=== PATIENT | female | born 1955 | race Caucasian/White ===

== ENCOUNTER 2017-11-26 11:39 | Emergency (ER) | payer MEDICARE, MEDICAID ==
[2014-08-15 06:12] VITALS: BMI 36.5
[~2017-11-26 11:39] MED LIST: ATIVAN2 MG PO; HYDROCODONE-APA1 TAB PO; LIPITOR40 MG PO; MAXZIDE 75/501 TAB PO; NEXIUM40 MG PO; NORVASC10 MG PO; SYNTHROID200 MC1 PO; ZEBETA5 MG PO; ZOLOFT100 MG PO
== END 2017-11-26 16:15 | disposition home or self-care (01) ==
LOC: D.ER 11:39
DX: S16.1XXA Strain of muscle, fascia and tendon at neck level, initial encounter (principal); Y04.2XXA Assault by strike against or bumped into by another person, initial encounter; Y93.89 Activity, other specified; Y92.89 Other specified places as the place of occurrence of the external cause; I10 Essential (primary) hypertension

== ENCOUNTER 2017-11-26 17:24 | Emergency (ER) | payer MEDICARE, MEDICAID ==
[2014-08-15 06:12] VITALS: BMI 36.5
[2017-11-26 22:37] LABS: BASOPHILS 0.3 % (0-2); EOSINOPHILS 6.6 % (0-7); HEMATOCRIT 35.5 % (36.0-48.0); HEMOGLOBIN 11.1 g/dL (12-16); IMMATURE GRANULOCYTES 0.1 % (0-5); LYMPHOCYTES 26.9 % (15-50); MCH 24.1 pg (26.0-34.0); MCHC 31.3 g/dL (31.0-37.0); MCV 77.2 fL (80.0-100.0); MEAN PLATELET VOLUME 9.2 fL (7.4-10.4); MONOCYTES 6.8 % (2-11); NEUTROPHILS 59.3 % (40-80); PLATELET COUNT 259 10x3/uL (130-400); RDW 16.8 % (11.5-14.5); WBC 7.7 10x3/uL (4.8-10.8)
[2017-11-26 22:44] LABS: APPEARANCE CLEAR (CLEAR); BILIRUBIN NEGATIVE (NEGATIVE); COLOR YELLOW (YELLOW); GLUCOSE NEGATIVE (NEGATIVE); KETONE NEGATIVE (NEGATIVE); NITRITE NEGATIVE (NEGATIVE); PROTEIN NEGATIVE (NEGATIVE); UROBILINOGEN NORMAL (NORMAL)
[2017-11-26 22:53] LABS: UDS - AMPHET NEGATIVE QUAL (NEGATIVE); UDS - BARB NEGATIVE QUAL (NEGATIVE); UDS - BENZO POSITIVE QUAL (NEGATIVE); UDS - COCAINE NEGATIVE QUAL (NEGATIVE); UDS - OPIATE POSITIVE QUAL (NEGATIVE); UDS - PCP NEGATIVE QUAL (NEGATIVE); UDS - THC NEGATIVE QUAL (NEGATIVE)
[2017-11-26 22:57] LABS: ALBUMIN 3.2 g/dL (3.4-5.0); ALKALINE PHOSPHATASE 69 U/L (46-116); ALT (SGPT) 10 U/L (10-68); CALC OSMOLALITY 283 mosm/kg (275-300); CALCIUM 8.5 mg/dL (8.5-10.1); CARBON DIOXIDE 26.1 mmol/L (21.0-32.0); CHLORIDE - SERUM 107 mmol/L (98-107); CREATININE - SERUM 0.6 mg/dL (0.6-1.3); GLUCOSE 86 mg/dL (74-106); POTASSIUM - SERUM 3.4 mmol/L (3.5-5.1); PROTEIN - SERUM 6.2 g/dL (6.4-8.2); SODIUM 143 mmol/L (136-145); UREA NITROGEN 13 mg/dL (7-18); eGFR NON AFRICAN AMERICAN > 90 mL/min (90-120)
== END 2017-11-27 00:50 | disposition home or self-care (01) ==
LOC: D.ER 17:24
PROVIDERS: Nurse Practitioner Family
DX: Z76.5 Malingerer [conscious simulation] (principal); Z86.59 Personal history of other mental and behavioral disorders

== ENCOUNTER 2017-11-27 01:53 | Emergency (ER) | payer MEDICARE, MEDICAID ==
[2014-08-15 06:12] VITALS: BMI 36.5
== END 2017-11-27 11:50 | disposition home or self-care (01) ==
LOC: D.ER 01:53
DX: R45.851 Suicidal ideations (principal); F33.9 Major depressive disorder, recurrent, unspecified; I10 Essential (primary) hypertension

== ENCOUNTER 2017-11-29 12:55 | Emergency (ER) | payer MEDICARE, MEDICAID ==
[2014-08-15 06:12] VITALS: BMI 36.5
== END 2017-11-29 15:25 | disposition home or self-care (01) ==
LOC: D.ER 12:55
DX: F41.9 Anxiety disorder, unspecified (principal); I10 Essential (primary) hypertension

== ENCOUNTER 2018-01-02 23:52 | Emergency (ER) | payer MEDICARE, MEDICAID ==
[2014-08-15 06:12] VITALS: BMI 36.5
== END 2018-01-03 01:50 | disposition home or self-care (01) ==
LOC: D.ER 23:52
DX: Z91.81 History of falling (principal); W01.0XXA Fall on same level from slipping, tripping and stumbling without subsequent striking against object, initial encounter; Y93.89 Activity, other specified; Y92.89 Other specified places as the place of occurrence of the external cause

== ENCOUNTER 2018-01-03 18:15 | Emergency (ER) | payer MEDICARE, MEDICAID ==
[2014-08-15 06:12] VITALS: BMI 36.5
== END 2018-01-03 22:32 | disposition home or self-care (01) ==
LOC: D.ER 18:15
DX: S00.83XA Contusion of other part of head, initial encounter (principal); S20.212A Contusion of left front wall of thorax, initial encounter; W01.0XXA Fall on same level from slipping, tripping and stumbling without subsequent striking against object, initial encounter; Y93.89 Activity, other specified; Y92.241 Library as the place of occurrence of the external cause; I10 Essential (primary) hypertension

== ENCOUNTER 2018-01-26 13:58 | Emergency (ER) | payer MEDICARE, MEDICAID ==
[2014-08-15 06:12] VITALS: BMI 36.5
--- NOTE | ~2018-01-26 | CN ---
PATIENT NAME:DANUTA MILLER MEDICAL RECORD: [id number] : 53 LOCATION:D.ER ADMIT DATE: ACCOUNT: [id number] CONSULTING PHYSICIAN: KATHY SCHREIBER MD REFERRING PHYSICIAN: DARIO WHITE MD DATE OF CONSULTATION: 01/26/2018 CHIEF COMPLAINT: Swelling. HISTORY OF PRESENT ILLNESS: The patient has a very large swollen area inferior to the inguinal ligament on the right. There is some swelling associated with it and I do not think it has actually drained. I have reviewed the patient's ultrasound as well as the CT scan. I think this warrants an excisional biopsy. It is going to be quite large excisional biopsy. The patient states that the area has been growing in size. I do not think this represents any emergency, so we are going to send the patient home and I will plan on getting her worked in early next week for an excisional biopsy of this mass. There is no Peau d'orange. There is some discoloration; however, really no true bruising. There is no swelling of the extremity as I would expect to see with lymphedema. The area is not hot. It is not red. Symptoms came on gradually. She states it is tender. It is a dull type of pain. She states it is of a severe intensity. Palpation aggravates. Nothing alleviates. ALLERGIES: SULFA, CODEINE, Levaquin, and PENICILLIN. HOME MEDICINES: Synthroid as well as lorazepam. REVIEW OF SYSTEMS: Positive for night sweats. No weight loss. No anorexia. No hemoptysis. No fever. PHYSICAL EXAMINATION: GENERAL: The patient does not appear acutely ill. She does appear chronically ill. The entire physical examination was performed in the presence of a female nurse. VITAL SIGNS: Reviewed. EARS: External ears appear normal. EYES: Extraocular movements are intact. NECK: Trachea is midline. CHEST: No intercostal retractions. PULMONARY: Nonlabored, no stridor. ABDOMEN: There is a large panniculus. There is a reducible left lower quadrant incisional hernia. INTEGUMENT: There is an intertriginous rash. BACK: No thoracic kyphosis. LYMPHATICS: No lymphangitic streaking of the exposed extremities. PSYCHIATRIC: Normal affect. NEUROLOGIC: There is evidence of loss of higher cortical function. IMPRESSION: Right upper thigh mass of uncertain etiology. PLAN: Plan will be excisional biopsy in the operating room. The risks, possible complications, and alternatives to procedure were explained to the CONSULT REPORT [id number] DANUTA MILLER patient. She elects to proceed. TRANSINT:[id number] Voice Confirmation ID: [id number] DOCUMENT ID: [id number] KATHY SCHREIBER MD at 1042 CC: [id number] DICTATION DATE: 01/26/181747 SAFETY ATTENDANT: 01/26/18 1829 DEP ER 01/26/18 [place] [id number]
[2018-01-26 16:44] LABS: BASOPHILS 1.6 % (0-2); EOSINOPHILS 3.3 % (0-7); HEMATOCRIT 35.2 % (36.0-48.0); HEMOGLOBIN 10.8 g/dL (12-16); IMMATURE GRANULOCYTES 0.1 % (0-5); LYMPHOCYTES 21.5 % (15-50); MCH 25.5 pg (26.0-34.0); MCHC 30.7 g/dL (31.0-37.0); MCV 83.2 fL (80.0-100.0); MEAN PLATELET VOLUME 8.7 fL (7.4-10.4); MONOCYTES 7.6 % (2-11); NEUTROPHILS 65.9 % (40-80); PLATELET COUNT 329 10x3/uL (130-400); RBC 4.23 10x6/uL (4.00-5.40); RDW 18.2 % (11.5-14.5); WBC 7.5 10x3/uL (4.8-10.8)
[2018-01-26 16:49] LABS: ALBUMIN 3.6 g/dL (3.4-5.0); ALKALINE PHOSPHATASE 120 U/L (46-116); ALT (SGPT) 14 U/L (10-68); BILIRUBIN - TOTAL 0.38 mg/dL (0.2-1.3); CALC OSMOLALITY 274 mosm/kg (275-300); CALCIUM 8.8 mg/dL (8.5-10.1); CARBON DIOXIDE 26.9 mmol/L (21.0-32.0); CHLORIDE - SERUM 104 mmol/L (98-107); CREATININE - SERUM 0.6 mg/dL (0.6-1.3); GLUCOSE 99 mg/dL (74-106); POTASSIUM - SERUM 3.6 mmol/L (3.5-5.1); PROTEIN - SERUM 7.1 g/dL (6.4-8.2); SODIUM 138 mmol/L (136-145); UREA NITROGEN 9 mg/dL (7-18); eGFR NON AFRICAN AMERICAN > 90 mL/min (90-120)
== END 2018-01-26 19:38 | disposition home or self-care (01) ==
LOC: D.ER 13:58
PROVIDERS: Nurse Practitioner Family
DX: R22.41 Localized swelling, mass and lump, right lower limb (principal)

== ENCOUNTER 2018-01-29 12:15 | Observation (INO) | payer MEDICARE, MEDICAID ==
[~2018-01-29] VITALS: Ht 160 cm; Wt 83.0 kg
--- NOTE | ~2018-01-29 | OP ---
PATIENT NAME: DANUTA MILLER MEDICAL RECORD: [id number] :53 LOCATION:D[id number] ADMISSION DATE:01/29/18 SURGEON: ARJUN SCHREIBER MD DATE OF OPERATION: 01/31/2018 PREOPERATIVE DIAGNOSIS: Right thigh mass. POSTOPERATIVE DIAGNOSIS: Right thigh mass. PROCEDURE: Multiple core biopsies of right thigh mass. SURGEON: Arjun Schreiber MD CRUSHER FOREMAN: None. BLOOD LOSS: Minimal. ANESTHESIA: Local with IV sedation. COMPLICATIONS: None. The patient has a right thigh mass that has been imaged and is of uncertain etiology. The risks, possible complications and alternatives to the procedure were explained to the patient. She elects to proceed. OPERATIVE COURSE: The patient was conveyed to the operating room electively on 01/31/2018. General anesthesia was induced by the anesthesia staff. The right thigh was sterilely prepped and draped. Local anesthetic was used to infiltrate the skin and subcutaneous tissues overlying the right thigh mass. At 2 different sites, I approached the mass and multiple 14-gauge core needle biopsies were obtained. Once I was satisfied that I had sampled the mass adequately, a sterile dressing was applied. Pathology on the mass is pending. TRANSINT:[id number] Voice Confirmation ID: [id number] DOCUMENT ID: [id number] ARJUN SCHREIBER MD at 1042 CC: SHAHEEN INIGUEZ MD [id number] DICTATION DATE: 01/31/18 1128 OFFICE BOOKKEEPER: 01/31/18 1229 DIS IN 01/31/[address] [id number]
[2018-01-29 13:22] LABS: BASOPHILS 1.1 % (0-2); EOSINOPHILS 1.4 % (0-7); HEMATOCRIT 39.4 % (36.0-48.0); HEMOGLOBIN 12.5 g/dL (12-16); IMMATURE GRANULOCYTES 0.3 % (0-5); MCH 25.9 pg (26.0-34.0); MCHC 31.7 g/dL (31.0-37.0); MCV 81.6 fL (80.0-100.0); MEAN PLATELET VOLUME 8.7 fL (7.4-10.4); MONOCYTES 6.6 % (2-11); NEUTROPHILS 73.6 % (40-80); PLATELET COUNT 299 10x3/uL (130-400); RBC 4.83 10x6/uL (4.00-5.40); RDW 17.6 % (11.5-14.5); WBC 7.2 10x3/uL (4.8-10.8)
[2018-01-29 13:36] LABS: APTT 26.6 SECONDS (22.8-39.4); INR 1.11 (0.85-1.17); PROTIME 13.9 SECONDS (11.6-15.0)
[2018-01-29 13:40] LABS: ALBUMIN 4.1 g/dL (3.4-5.0); ALKALINE PHOSPHATASE 124 U/L (46-116); ALT (SGPT) 13 U/L (10-68); BILIRUBIN - TOTAL 0.87 mg/dL (0.2-1.3); CALC OSMOLALITY 282 mosm/kg (275-300); CALCIUM 9.4 mg/dL (8.5-10.1); CARBON DIOXIDE 28.3 mmol/L (21.0-32.0); CHLORIDE - SERUM 103 mmol/L (98-107); CREATININE - SERUM 0.7 mg/dL (0.6-1.3); GLUCOSE 121 mg/dL (74-106); POTASSIUM - SERUM 3.3 mmol/L (3.5-5.1); SODIUM 142 mmol/L (136-145); UREA NITROGEN 9 mg/dL (7-18); eGFR NON AFRICAN AMERICAN 90 mL/min (90-120)
[2018-01-29 13:51] LABS: CKMB 0.5 U/L (0.0-3.6); CREATINE KINASE 63 UL (21-215)
[2018-01-29 13:53] LABS: TROPONIN-I < 0.017 ng/mL (0.000-0.060)
[2018-01-29 16:47] LABS: APPEARANCE HAZY (CLEAR); BILIRUBIN NEGATIVE (NEGATIVE); COLOR DK YELLOW (YELLOW); GLUCOSE NEGATIVE (NEGATIVE); KETONE NEGATIVE (NEGATIVE); NITRITE NEGATIVE (NEGATIVE); PROTEIN TRACE mg/dL (NEGATIVE); UROBILINOGEN NORMAL (NORMAL)
[2018-01-29 16:50] LABS: BACTERIA MODERATE /hpf (NONE SEEN); EPITHELIAL CELLS 0-5 /hpf (0-5); MUCUS <1+ /lpf (NONE SEEN); RED CELLS - URINE OCC /hpf (0-5)
[2018-01-29 18:13] VITALS: BP 138/89; BMI 32.4
[2018-01-29 20:00] VITALS: BP 145/87
[2018-01-30 04:00] VITALS: BP 131/88
[2018-01-30 08:28] VITALS: BP 126/89
[2018-01-30 13:03] LABS: CHOL - HDL RATIO 4.2 ratio (2.3-4.1); CHOLESTEROL, TOTAL 259 mg/dL (0-200); HDL CHOLESTEROL 62 mg/dL (32-96); LDL CHOLESTEROL 160 mg/dL (0-100); LDL-HDL RATIO 2.6 ratio (1.5-3.5); T4 THYROXIN - FREE 1.01 ng/dL (0.76-1.46); TRIGLYCERIDE 188 mg/dL (30-200)
[2018-01-30 13:07] LABS: C-REACTIVE PROTEIN < 0.2 mg/dL (0.0-0.9)
[2018-01-30 13:09] VITALS: BP 138/92
[2018-01-30 13:49] LABS: ERYTHROCYTE SEDIMENTATION RATE 14 mm/hr (0-30)
[2018-01-30 14:40] VITALS: Ht 160 cm; Wt 83.0 kg
[2018-01-30 16:03] VITALS: BP 135/83
[2018-01-30 20:00] VITALS: BP 118/83
[2018-01-31] VITALS (8 sets, daily range): BP systolic 112–141; BP diastolic 69–80
[2018-01-31 10:53] LABS: BASOPHILS 0.7 % (0-2); EOSINOPHILS 4.5 % (0-7); HEMATOCRIT 35.9 % (36.0-48.0); HEMOGLOBIN 11.1 g/dL (12-16); IMMATURE GRANULOCYTES 0.4 % (0-5); LYMPHOCYTES 19.7 % (15-50); MCH 25.4 pg (26.0-34.0); MCHC 30.9 g/dL (31.0-37.0); MCV 82.2 fL (80.0-100.0); MEAN PLATELET VOLUME 8.8 fL (7.4-10.4); MONOCYTES 7.6 % (2-11); NEUTROPHILS 67.1 % (40-80); PLATELET COUNT 254 10x3/uL (130-400); RBC 4.37 10x6/uL (4.00-5.40); RDW 17.5 % (11.5-14.5); WBC 5.4 10x3/uL (4.8-10.8)
[2018-01-31 10:59] LABS: CALC OSMOLALITY 278 mosm/kg (275-300); CALCIUM 8.8 mg/dL (8.5-10.1); CARBON DIOXIDE 26.5 mmol/L (21.0-32.0); CHLORIDE - SERUM 106 mmol/L (98-107); CREATININE - SERUM 0.6 mg/dL (0.6-1.3); GLUCOSE 97 mg/dL (74-106); POTASSIUM - SERUM 3.7 mmol/L (3.5-5.1); SODIUM 141 mmol/L (136-145); UREA NITROGEN 8 mg/dL (7-18); eGFR NON AFRICAN AMERICAN > 90 mL/min (90-120)
== END 2018-01-31 18:39 | disposition home or self-care (01) ==
LOC: D.ER 12:15 → D.EDHOLD 15:46 → D.MS 15:46 → OBSVTIME 01-30 12:00 → D.MS 01-31 18:39
PROVIDERS: Anesthesiology; Family Medicine; Internal Medicine Nephrology
DX: R22.41 Localized swelling, mass and lump, right lower limb (principal); I10 Essential (primary) hypertension; N39.0 Urinary tract infection, site not specified; E03.9 Hypothyroidism, unspecified; R51 Headache

== ENCOUNTER 2018-02-04 10:10 | Emergency (ER) | payer MEDICARE, MEDICAID ==
[2018-01-30 14:40] VITALS: BMI 32.4
[2018-02-04 10:42] LABS: BASOPHILS 0.8 % (0-2); EOSINOPHILS 2.8 % (0-7); HEMATOCRIT 36.9 % (36.0-48.0); HEMOGLOBIN 11.4 g/dL (12-16); IMMATURE GRANULOCYTES 0.2 % (0-5); LYMPHOCYTES 11.8 % (15-50); MCH 25.4 pg (26.0-34.0); MCHC 30.9 g/dL (31.0-37.0); MCV 82.2 fL (80.0-100.0); MEAN PLATELET VOLUME 8.7 fL (7.4-10.4); MONOCYTES 6.1 % (2-11); NEUTROPHILS 78.3 % (40-80); PLATELET COUNT 235 10x3/uL (130-400); RBC 4.49 10x6/uL (4.00-5.40); RDW 16.6 % (11.5-14.5); WBC 6.5 10x3/uL (4.8-10.8)
[2018-02-04 10:56] LABS: ALBUMIN 3.9 g/dL (3.4-5.0); ALKALINE PHOSPHATASE 96 U/L (46-116); ALT (SGPT) 14 U/L (10-68); BILIRUBIN - TOTAL 0.41 mg/dL (0.2-1.3); CALC OSMOLALITY 287 mosm/kg (275-300); CALCIUM 9.1 mg/dL (8.5-10.1); CARBON DIOXIDE 26.7 mmol/L (21.0-32.0); CHLORIDE - SERUM 105 mmol/L (98-107); CREATININE - SERUM 0.7 mg/dL (0.6-1.3); POTASSIUM - SERUM 3.1 mmol/L (3.5-5.1); PROTEIN - SERUM 7.5 g/dL (6.4-8.2); SODIUM 142 mmol/L (136-145); UREA NITROGEN 14 mg/dL (7-18); eGFR NON AFRICAN AMERICAN 90 mL/min (90-120)
[2018-02-04 10:58] LABS: GLUCOSE 175 mg/dL (74-106)
[2018-02-04 10:59] LABS: APPEARANCE CLEAR (CLEAR); COLOR YELLOW (YELLOW)
[2018-02-04 11:00] LABS: BILIRUBIN NEGATIVE (NEGATIVE); GLUCOSE 50 mg/dL (NEGATIVE); KETONE NEGATIVE (NEGATIVE); NITRITE NEGATIVE (NEGATIVE); PROTEIN NEGATIVE (NEGATIVE); UROBILINOGEN NORMAL (NORMAL)
[2018-02-04 11:01] LABS: WHITE CELLS - URINE 0-5 /hpf (0-5)
[2018-02-04 11:02] LABS: BACTERIA FEW /hpf (NONE SEEN); MUCUS <1+ /lpf (NONE SEEN); RED CELLS - URINE 0-5 /hpf (0-5)
[2018-02-04 11:03] LABS: EPITHELIAL CELLS 0-5 /hpf (0-5)
== END 2018-02-04 13:28 | disposition home or self-care (01) ==
LOC: D.ER 10:10
PROVIDERS: Emergency Medicine
DX: R10.32 Left lower quadrant pain (principal); R30.0 Dysuria; K59.00 Constipation, unspecified; E87.6 Hypokalemia

== ENCOUNTER 2018-02-12 20:29 | Emergency (ER) | payer MEDICARE, MEDICAID ==
[2018-01-30 14:40] VITALS: BMI 32.4
== END 2018-02-13 00:32 | disposition home or self-care (01) ==
LOC: D.ER 20:29
DX: F41.9 Anxiety disorder, unspecified (principal)

== ENCOUNTER 2018-02-13 01:21 | Emergency (ER) | payer MEDICARE, MEDICAID ==
[2018-01-30 14:40] VITALS: BMI 32.4
[2018-02-13 03:05] LABS: EOSINOPHILS 3.2 % (0-7); HEMATOCRIT 34.9 % (36.0-48.0); HEMOGLOBIN 10.8 g/dL (12-16); IMMATURE GRANULOCYTES 0.3 % (0-5); LYMPHOCYTES 22.2 % (15-50); MCH 25.4 pg (26.0-34.0); MCHC 30.9 g/dL (31.0-37.0); MCV 81.9 fL (80.0-100.0); MEAN PLATELET VOLUME 8.9 fL (7.4-10.4); MONOCYTES 7.9 % (2-11); NEUTROPHILS 65.4 % (40-80); RBC 4.26 10x6/uL (4.00-5.40); RDW 16.1 % (11.5-14.5); WBC 7.2 10x3/uL (4.8-10.8)
[2018-02-13 03:07] LABS: PLATELET COUNT 322 10x3/uL (130-400)
[2018-02-13 03:18] LABS: ALBUMIN 3.3 g/dL (3.4-5.0); ALKALINE PHOSPHATASE 81 U/L (46-116); ALT (SGPT) 11 U/L (10-68); BILIRUBIN - TOTAL 0.33 mg/dL (0.2-1.3); CALC OSMOLALITY 285 mosm/kg (275-300); CALCIUM 8.5 mg/dL (8.5-10.1); CARBON DIOXIDE 28.8 mmol/L (21.0-32.0); CHLORIDE - SERUM 104 mmol/L (98-107); CREATININE - SERUM 0.7 mg/dL (0.6-1.3); GLUCOSE 134 mg/dL (74-106); POTASSIUM - SERUM 3.8 mmol/L (3.5-5.1); PROTEIN - SERUM 6.5 g/dL (6.4-8.2); SODIUM 143 mmol/L (136-145); UREA NITROGEN 11 mg/dL (7-18); eGFR NON AFRICAN AMERICAN 90 mL/min (90-120)
[2018-02-13 03:18] LABS: UDS - AMPHET NEGATIVE QUAL (NEGATIVE); UDS - BARB NEGATIVE QUAL (NEGATIVE); UDS - BENZO NEGATIVE QUAL (NEGATIVE); UDS - COCAINE NEGATIVE QUAL (NEGATIVE); UDS - OPIATE NEGATIVE QUAL (NEGATIVE); UDS - PCP NEGATIVE QUAL (NEGATIVE); UDS - THC NEGATIVE QUAL (NEGATIVE)
[2018-02-13 03:36] LABS: APPEARANCE CLEAR (CLEAR); BILIRUBIN NEGATIVE (NEGATIVE); COLOR YELLOW (YELLOW); GLUCOSE NEGATIVE (NEGATIVE); KETONE NEGATIVE (NEGATIVE); NITRITE NEGATIVE (NEGATIVE); PROTEIN NEGATIVE (NEGATIVE); UROBILINOGEN NORMAL (NORMAL)
[2018-02-13 03:37] LABS: BACTERIA NONE SEEN /hpf (NONE SEEN); EPITHELIAL CELLS 0-5 /hpf (0-5); RED CELLS - URINE 0-5 /hpf (0-5); WHITE CELLS - URINE 0-5 /hpf (0-5)
== END 2018-02-13 08:15 | disposition home or self-care (01) ==
LOC: D.ER 01:21
PROVIDERS: Family Medicine
DX: F33.9 Major depressive disorder, recurrent, unspecified (principal); R45.851 Suicidal ideations

== ENCOUNTER 2018-03-21 22:40 | Emergency (ER) | payer MEDICARE, MEDICAID ==
[2018-01-30 14:40] VITALS: BMI 32.4
[2018-03-21 23:11] LABS: BASOPHILS 0.8 % (0-2); EOSINOPHILS 5.3 % (0-7); HEMATOCRIT 30.6 % (36.0-48.0); HEMOGLOBIN 9.1 g/dL (12-16); IMMATURE GRANULOCYTES 0.2 % (0-5); LYMPHOCYTES 27.1 % (15-50); MCH 23.6 pg (26.0-34.0); MCHC 29.7 g/dL (31.0-37.0); MCV 79.5 fL (80.0-100.0); MEAN PLATELET VOLUME 8.7 fL (7.4-10.4); MONOCYTES 6.8 % (2-11); NEUTROPHILS 59.8 % (40-80); PLATELET COUNT 286 10x3/uL (130-400); RBC 3.85 10x6/uL (4.00-5.40); RDW 17.1 % (11.5-14.5); WBC 5.1 10x3/uL (4.8-10.8)
[2018-03-21 23:21] LABS: ALBUMIN 3.2 g/dL (3.4-5.0); ALKALINE PHOSPHATASE 94 U/L (46-116); ALT (SGPT) 13 U/L (10-68); CALC OSMOLALITY 288 mosm/kg (275-300); CALCIUM 9.2 mg/dL (8.5-10.1); CARBON DIOXIDE 23.6 mmol/L (21.0-32.0); CHLORIDE - SERUM 107 mmol/L (98-107); CREATININE - SERUM 0.8 mg/dL (0.6-1.3); POTASSIUM - SERUM 3.4 mmol/L (3.5-5.1); PROTEIN - SERUM 6.6 g/dL (6.4-8.2); SODIUM 143 mmol/L (136-145); UREA NITROGEN 11 mg/dL (7-18); eGFR NON AFRICAN AMERICAN 77 mL/min (90-120)
[2018-03-21 23:26] LABS: GLUCOSE 187 mg/dL (74-106)
[2018-03-21 23:32] LABS: CKMB 0.3 U/L (0.0-3.6); MAGNESIUM - SERUM 1.9 mg/dL (1.8-2.4); TROPONIN-I < 0.017 ng/mL (0.000-0.060)
[2018-03-21 23:46] LABS: INR 1.02 (0.85-1.17)
[2018-03-21 23:47] LABS: D-DIMER-QUANTITATIVE 0.43 ug/mLFEU (0.20-0.54)
== END 2018-03-22 03:18 | disposition home or self-care (01) ==
LOC: D.ER 22:40
PROVIDERS: Family Medicine
DX: R00.0 Tachycardia, unspecified (principal)

== ENCOUNTER 2018-03-22 18:48 | Emergency (ER) | payer MEDICARE, MEDICAID ==
[2018-01-30 14:40] VITALS: BMI 32.4
[2018-03-22 20:14] LABS: BASOPHILS 0.9 % (0-2); EOSINOPHILS 3.6 % (0-7); HEMATOCRIT 31.7 % (36.0-48.0); HEMOGLOBIN 9.4 g/dL (12-16); IMMATURE GRANULOCYTES 0.4 % (0-5); LYMPHOCYTES 15.5 % (15-50); MCH 23.2 pg (26.0-34.0); MCHC 29.7 g/dL (31.0-37.0); MCV 78.1 fL (80.0-100.0); MEAN PLATELET VOLUME 8.8 fL (7.4-10.4); MONOCYTES 6.5 % (2-11); NEUTROPHILS 73.1 % (40-80); PLATELET COUNT 272 10x3/uL (130-400); RBC 4.06 10x6/uL (4.00-5.40); RDW 16.9 % (11.5-14.5)
[2018-03-22 20:17] LABS: WBC 7.4 10x3/uL (4.8-10.8)
[2018-03-22 20:28] LABS: ALBUMIN 3.4 g/dL (3.4-5.0); ALKALINE PHOSPHATASE 89 U/L (46-116); ALT (SGPT) 15 U/L (10-68); BILIRUBIN - TOTAL 0.13 mg/dL (0.2-1.3); CALC OSMOLALITY 289 mosm/kg (275-300); CALCIUM 9.3 mg/dL (8.5-10.1); CARBON DIOXIDE 28.3 mmol/L (21.0-32.0); CHLORIDE - SERUM 106 mmol/L (98-107); CREATININE - SERUM 0.7 mg/dL (0.6-1.3); POTASSIUM - SERUM 3.5 mmol/L (3.5-5.1); PROTEIN - SERUM 6.9 g/dL (6.4-8.2); SODIUM 145 mmol/L (136-145); UREA NITROGEN 10 mg/dL (7-18); eGFR NON AFRICAN AMERICAN 90 mL/min (90-120)
[2018-03-22 20:29] LABS: GLUCOSE 127 mg/dL (74-106)
[2018-03-22 22:33] LABS: % SATURATION 3 % (15-55); IRON 15 ug/dl (35-150); TOTAL IRON BIND CAPACITY 380 ug/dl (260-445); UNSAT IRON BIND CAPACITY 365 ug/dl (150-375)
[2018-03-24 08:17] LABS: FOLATE (FOLIC ACID) - SERUM 6.3 ng/mL (>3.0)
== END 2018-03-22 22:37 | disposition home or self-care (01) ==
LOC: D.ER 18:48
PROVIDERS: Family Medicine
DX: R00.0 Tachycardia, unspecified (principal); D64.9 Anemia, unspecified; D50.9 Iron deficiency anemia, unspecified; F41.9 Anxiety disorder, unspecified; F17.200 Nicotine dependence, unspecified, uncomplicated

== ENCOUNTER 2018-05-04 16:49 | Emergency (ER) | payer MEDICARE, MEDICAID ==
[~2018-05-04] VITALS: Ht 160 cm; Wt 81.8 kg
[2018-05-04 17:59] VITALS: Ht 160 cm; Wt 81.8 kg
[2018-05-04] MEDS ORDERED: GABAPENTIN100 MG PO (18:03)
[2018-05-04] MEDS ORDERED: NEURONTIN 400400 MG PO (18:03)
[2018-05-04] MEDS ORDERED: TOPROL XL25 MG PO (18:04)
[2018-05-04] MEDS ORDERED: TORADOL10 MG PO (22:25)
[2018-05-05 02:30] VITALS: BP 172/91
== END 2018-05-04 23:06 | disposition home or self-care (01) ==
LOC: D.ER 16:49
DX: K46.9 Unspecified abdominal hernia without obstruction or gangrene (principal)

== ENCOUNTER 2018-05-18 17:39 | Emergency (ER) | payer MEDICARE, MEDICAID ==
[~2018-05-18] VITALS: Ht 160 cm; Wt 81.8 kg
[~2018-05-18 17:39] MED LIST changes: +GABAPENTIN100 MG PO; +NEURONTIN 400400 MG PO; +TOPROL XL25 MG PO; +TORADOL10 MG PO
[2018-05-18 17:41] VITALS: Ht 160 cm; Wt 81.8 kg
[2018-05-18 20:11] LABS: BASOPHILS 0.8 % (0-2); EOSINOPHILS 5.1 % (0-7); HEMATOCRIT 40.8 % (36.0-48.0); HEMOGLOBIN 12.8 g/dL (12-16); IMMATURE GRANULOCYTES 0.3 % (0-5); LYMPHOCYTES 31.8 % (15-50); MCH 22.6 pg (26.0-34.0); MCHC 31.4 g/dL (31.0-37.0); MCV 72.1 fL (80.0-100.0); MEAN PLATELET VOLUME 8.5 fL (7.4-10.4); MONOCYTES 6.4 % (2-11); NEUTROPHILS 55.6 % (40-80); PLATELET COUNT 300 10x3/uL (130-400); RBC 5.66 10x6/uL (4.00-5.40); RDW 17.3 % (11.5-14.5); WBC 10.8 10x3/uL (4.8-10.8)
[2018-05-18 20:26] LABS: HCG SERUM NEGATIVE (NEGATIVE)
[2018-05-18 20:36] LABS: UDS - AMPHET NEGATIVE QUAL (NEGATIVE); UDS - BARB NEGATIVE QUAL (NEGATIVE); UDS - BENZO NEGATIVE QUAL (NEGATIVE); UDS - COCAINE NEGATIVE QUAL (NEGATIVE); UDS - OPIATE NEGATIVE QUAL (NEGATIVE); UDS - PCP NEGATIVE QUAL (NEGATIVE); UDS - THC NEGATIVE QUAL (NEGATIVE)
[2018-05-18 20:39] LABS: CALC OSMOLALITY 275 mosm/kg (275-300); CARBON DIOXIDE 27.7 mmol/L (21.0-32.0); CHLORIDE - SERUM 100 mmol/L (98-107); CREATININE - SERUM 0.7 mg/dL (0.6-1.3); GLUCOSE 119 mg/dL (74-106); POTASSIUM - SERUM 3.7 mmol/L (3.5-5.1); SODIUM 138 mmol/L (136-145); UREA NITROGEN 11 mg/dL (7-18); eGFR NON AFRICAN AMERICAN 90 mL/min (90-120)
[2018-05-18 20:43] LABS: THYROID STIMULATING HORMONE 119.68 uIU/mL (0.36-3.74)
[2018-05-18 20:49] LABS: COLOR YELLOW (YELLOW)
[2018-05-18 20:50] LABS: APPEARANCE CLEAR (CLEAR); BACTERIA MODERATE /hpf (NONE SEEN); BILIRUBIN NEGATIVE (NEGATIVE); EPITHELIAL CELLS 0-5 /hpf (0-5); GLUCOSE NEGATIVE (NEGATIVE); KETONE NEGATIVE (NEGATIVE); NITRITE NEGATIVE (NEGATIVE); PROTEIN NEGATIVE (NEGATIVE); RED CELLS - URINE 0-5 /hpf (0-5); UROBILINOGEN NORMAL (NORMAL); WHITE CELLS - URINE 0-5 /hpf (0-5)
[2018-05-19 02:59] VITALS: BP 132/81
== END 2018-05-19 05:22 ==
LOC: D.ER 17:39
PROVIDERS: Emergency Medicine
DX: R45.851 Suicidal ideations (principal); F32.9 Major depressive disorder, single episode, unspecified; E03.9 Hypothyroidism, unspecified; S51.812A Laceration without foreign body of left forearm, initial encounter; X78.9XXA Intentional self-harm by unspecified sharp object, initial encounter; Y93.89 Activity, other specified; Y92.019 Unspecified place in single-family (private) house as the place of occurrence of the external cause; F29 Unspecified psychosis not due to a substance or known physiological condition; I10 Essential (primary) hypertension